=== PATIENT | male | born 2000 | race Two or more races ===

== ENCOUNTER 2024-01-23 15:55 | Emergency (ER) | payer OTHER ==
[~2024-01-23] VITALS: Ht 177.8 cm; Wt 70.3 kg
[2024-01-23] MEDS ORDERED: LIDOCAINE HCL 1% 10ML VIAL PERCUT ONE (19:00)
[2024-01-23] MEDS ORDERED: CEFTRIAXONE SODIUM 1,000 MG VIAL IM ONE (19:30)
[2024-01-23] MEDS ORDERED: TETANUS & DIPHTHERIA TOX,ADULT 0.5 ML VIAL IM ONE (19:30)
[2024-01-23] MEDS ORDERED: CEPHALEXIN500 MG PO (19:42)
== END 2024-01-23 20:40 | disposition home or self-care (01) ==
LOC: ER 15:56
DX: S61.210A Laceration without foreign body of right index finger without damage to nail, initial encounter (principal); W26.8XXA Contact with other sharp object(s), not elsewhere classified, initial encounter; Y93.89 Activity, other specified; Y92.89 Other specified places as the place of occurrence of the external cause; Y99.8 Other external cause status

== ENCOUNTER 2024-02-02 11:19 | Emergency (ER) | payer OTHER ==
[~2024-02-02] VITALS: Ht 170.2 cm; Wt 72.6 kg
[~2024-02-02 11:19] MED LIST: CEPHALEXIN500 MG PO
[2024-02-02] MEDS ORDERED: AMOX-CLAV 875-1 EACH PO (12:03)
[2024-02-02] MEDS ORDERED: INTESTINEX680 M1 PO (12:03)
== END 2024-02-02 12:49 | disposition home or self-care (01) ==
LOC: ER 11:20
DX: Z48.02 Encounter for removal of sutures (principal)